=== PATIENT | female | born 1935 | race Caucasian/White ===

== ENCOUNTER 2019-11-14 08:44 | Outpatient (RCR) | payer MEDICARE, SELFPAY ==
--- NOTE | 2019-11-14 13:51 | PTOPEVAL ---
Thank you for referring this patient to [facility]. Please review, sign, date and return this plan of care FANNY. I agree with and certify that the following plan of care is medically necessary. Referring Physician Date Admitting Provider: Attending Provider: Carlos Eduardo Clark MD Referring Provider: *PT Outpatient Evaluation Start: 11/14/19 09:49 Freq: Status: Active Protocol: Document 11/14/19 09:50 [id number] (Rec: 11/14/19 10:22 DELONTE [id number]) Therapy Assessment Status Assessment Status Assessment Status Evaluation Evaluation Information Problem Diagnosis low back and hip pain Onset 10/23/19 Subjective Information Pt. reports she was walking in Query Text:As Reported By Patient/ [facility] and felt back and Family right hip pain. She reports pain has been on/off since then. She states that she did get a steroid pack which hase eased the pain. she reports that her goal for therapy is to continue to decrease her low back pain. Prior Level of Function Activity Level (Last 3 Months) Hand Dominance Right Activity of Daily Living Ability Independent Indoor/Home Mobility Independent Community Mobility Independent Stairs Ability Independent Functional Cognition (Planning, Shopping Independent , Taking Medications) Cooking Yes Cleaning Yes Laundry Yes Shopping Yes Driving Yes Pain Assessment Pain Scale Pain Scale Used Numeric (1 - 10) Self Report Pain Assessment Right Buttock(s) Reported Pain Level 5 Pain Description Aching Current Pain Intensity 5 Lowest Pain Intensity 1 Greatest Pain Intensity 5 Pain Aggravating Factors Prolonged Position,Stair Climbing Pain Relief Interventions Used By Medication,Walking Patient Pain Score Pain Score 5: Self Report Cervical and Lumbar ROM Lumbar ROM Lumbar Flexion Active Ankle Query Text:Hands to: Lumbar Extension (0-40) 20 Query Text:Active in Degrees Lumbar Lateral Flexion Right (0-40) 20 Query Text:Active in Degrees Lumbar Lateral Flexion Left (0-40) 20 Query Text:Active in Degrees Lateral Rotation Right (0-45) 30 Query Text:Active in Degrees Lateral Rotation Left (0-45) 30
== END 2019-12-27 08:42 | disposition home or self-care (01) ==
LOC: CHSPT 08:44
PROVIDERS: Visit Provider Internal Medicine
DX: M54.5 Low back pain (principal); M25.559 Pain in unspecified hip
CPT/HCPCS: 97014; 97110; 97140; 97161; G0283

== ENCOUNTER 2020-05-04 11:56 | Outpatient (CLI) | payer MEDICARE, SELFPAY ==
--- NOTE | ~2020-05-04 | US_ITS ---
EXAMINATION: US pelvic complete w TV DATE: 05/04/2020 12:52 INDICATION: Vaginal bleeding TECHNIQUE: Multiple transabdominal and endovaginal sonographic images of the pelvis were obtained. COMPARISON: None. FINDINGS: The uterus measures 3.9 x 2.1 x 3.1 cm. The endometrial complex measures 5 mm in thickness at the fu ndus which is at the upper limits of normal. The right and left ovaries are not visualized. There is no free fluid in the pelvis. IMPRESSION: 1. Endometrial complex thickness of 5 mm which is at the upper limits of normal. Given the history of vaginal bleeding would consider hysteroscopy for further evaluation. Reviewed, dictated and finalized at location A. IMPRESSION: 1. Endometrial complex thickness of 5 mm which is at the upper limits of normal . Given the history of vaginal bleeding would consider hysteroscopy for further evaluation.
== END 2020-05-04 11:57 | disposition home or self-care (01) ==
PROVIDERS: PCP Internal Medicine; Visit Provider Internal Medicine
DX: N93.8 Other specified abnormal uterine and vaginal bleeding (principal)
CPT/HCPCS: 76830; 76856

== ENCOUNTER 2020-09-03 09:49 | Outpatient (CLI) | payer MEDICARE, SELFPAY ==
--- NOTE | ~2020-09-03 | US_ITS ---
EXAMINATION: US pelvic complete w TV DATE: 09/03/2020 10:20 INDICATION: Postmenopausal bleeding TECHNIQUE: Multiple transabdominal and endovaginal sonographic images of the pelvis were obtained. COMPARISON: 05/04/2020 FINDINGS: The uterus measures 5.4 x 1.9 x 3.2 cm. The endometrial complex measures 5 mm. The left ova ry is not visualized however no left adnexal abnormality is seen. The right ovary measures 1.2 x 0.8 x 1.0 cm. There is normal vascular flow in the right ovary. There is no free fluid in the pelvis. IMPRESSION: 1. No sonographic correlate for the patient's symptoms. Reviewed, dictated and finalized at location A.
== END 2020-09-03 09:50 | disposition home or self-care (01) ==
PROVIDERS: PCP Internal Medicine; Visit Provider Student in an Organized Health Care Education/Training Program
DX: N95.0 Postmenopausal bleeding (principal)
CPT/HCPCS: 76830; 76856

== ENCOUNTER 2021-02-04 12:31 | Outpatient (CLI) | payer MEDICARE, SELFPAY ==
[2021-02-04 13:43] LABS: SARS-CoV-2 Ag Negative (Negative)
[2021-02-05 12:21] LABS: SARS-CoV-2 RNA PCR Negative
== END 2021-02-04 12:32 | disposition home or self-care (01) ==
LOC: CHSLAB 12:35
PROVIDERS: PCP Internal Medicine; Visit Provider Internal Medicine
DX: Z20.822 Contact with and (suspected) exposure to COVID-19 (principal)
CPT/HCPCS: 87426; C9803; U0003; U0005

== ENCOUNTER 2021-03-09 13:31 | Emergency (ER) | payer MEDICARE, SELFPAY ==
[2021-03-09 14:03] VITALS: BP 157/69; PULSE 66; RESP 16; TEMP 37.1; O2SAT 96
--- NOTE | 2021-03-09 15:08 | ED_ITS ---
HPI - Ear Problem General Chief complaint: Ear Stated complaint: hearing aid broke off in R ear Time Seen by Provider: 03/09/21 14:20 Related Data Home Medications Medication Instructions Recorded Confirmed apixaban 5 mg tablet 5 mg PO BID 05/14/20 03/09/21 aspirin 81 mg tablet,delayed 81 mg PO DAILY 05/14/20 03/09/21 release losartan 25 mg tablet 25 mg PO DAILY 05/14/20 03/09/21 metoprolol succinate 25 mg 25 mg PO DAILY 05/14/20 03/09/21 tablet,extended release 24 hr Allergies Allergy/AdvReac Type Severity Reaction Status Date / Time No Known Allergies Allergy Verified 12/26/20 08:43 [facility] Past Medical History Medical History (Updated 03/09/21 @ 15:10 by Andrew Hurd MD) Afib Heart attack High blood pressure High cholesterol Osteoporosis Pneumonia Surgical History Surgical History (Updated 12/26/20 @ 08:47 by Cherelle Del Valle CMA) History of thyroid surgery Family History Family History Father Hypertension Bladder cancer Social History Social History Smoking status: Never smoker Alcohol intake: never Substance use: never Course Vital Signs Vital signs: Vital Signs Temperature 37.1 C 03/09/21 14:03 Pulse Rate 66 03/09/21 14:03 Respiratory Rate 16 03/09/21 14:03 Blood Pressure 157/69 H 03/09/21 14:03 Pulse Oximetry 96 03/09/21 14:03 Temperature 37.1 C 03/09/21 14:03 Pulse Rate 66 03/09/21 14:03 Respiratory Rate 16 03/09/21 14:03 Blood Pressure 157/69 H 03/09/21 14:03 Pulse Oximetry 96 03/09/21 14:03 Medical Decision Making Vital Signs Vital Signs: Vital Signs Temperature 37.1 C 03/09/21 14:03 Pulse Rate 66 03/09/21 14:03 Respiratory Rate 16 03/09/21 14:03 Blood Pressure 157/69 H 03/09/21 14:03 Pulse Oximetry 96 03/09/21 14:03 Temperature 37.1 C 03/09/21 14:03 Pulse Rate 66 03/09/21 14:03 Respiratory Rate 16 03/09/21 14:03 Blood Pressure 157/69 H 03/09/21 14:03 Pulse Oximetry 96 03/09/21 14:03 Discharge Plan Discharge Clinical Impression: Foreign body in ear Patient Disposition: Home, Self-Care Condition: Stable Instructions: Antibiotic Form Additional Instructions: Follow up with family doctor as needed. Prescriptions: No Action Eliquis 5 mg tablet 5 mg PO BID RF: 0 metoprolol succinate 25 mg tablet extended release 24 hr 25 mg PO DAILY RF: 0 aspirin [Aspirin Low Dose] 81 mg tablet,delayed release (DR/EC) 81 mg PO DAILY RF: 0 losartan 25 mg tablet 25 mg PO DAILY RF: 0 Follow-up/Referrals: Carlos Eduardo Clark MD [Primary Care Provider] - Time of Disposition: 15:09
--- NOTE | 2021-03-09 15:16 | PC.NURSE ---
right ear irrigated with warm water, foreign body removed along with small amount of ear was
== END 2021-03-09 15:20 | disposition home or self-care (01) ==
PROVIDERS: Emergency Provider Emergency Medicine; PCP Internal Medicine
DX: T16.1XXA Foreign body in right ear, initial encounter (principal)
CPT/HCPCS: 99282

== ENCOUNTER 2021-06-20 11:20 | Outpatient (CLI) | payer MEDICARE, SELFPAY ==
[2021-06-20 11:41] LABS: Basophils Absolute Auto 0.04 K/mm3 (0.00-0.10); Basophils Percent Auto 0.4 % (0.0-1.0); Eosinophils Absolute Auto 0.21 K/mm3 (0.02-0.50); Eosinophils Percent Auto 1.9 % (1.0-6.0); Hemoglobin 13.7 g/dL (11.7-13.8); Immature Granulocyte Absolute 0.04 K/mm3 (0.00-0.00); Immature Granulocyte Percent A 0.4 % (0.0-0.0); Lymphocytes Absolute Auto 1.45 K/mm3 (1.10-4.50); Lymphocytes Percent Auto 13.3 % (18.0-42.0); Mean Corpuscular HGB Conc 32.6 g/dL (32.0-36.0); Mean Corpuscular Hemoglobin 28.8 pg (27.0-31.0); Mean Corpuscular Volume 88.4 fL (78.0-102.0); Mean Platelet Volume 9.6 fl (9.2-11.8); Monocytes Absolute Auto 0.85 K/mm3 (0.10-0.90); Monocytes Percent Auto 7.8 % (2.0-11.0); Neutrophils Absolute Auto 8.3 K/mm3 (1.7-7.2); Neutrophils Percent Auto 76.2 % (50.0-70.0); Platelet Count Result 268 K/mm3 (150-420); Red Blood Count 4.75 M/mm3 (4.20-5.40); Red Cell Distribution Width 12.3 % (11.6-14.4); White Blood Count 10.9 K/mm3 (4.8-10.8)
[2021-06-20 11:57] LABS: D Dimer 0.94 mg/L (0.19-0.50)
[2021-06-20 12:28] LABS: Alanine Aminotransferase 30 U/L (14-59); Albumin Level 3.6 g/dL (3.4-5.0); Alkaline Phosphatase 75 U/L (46-116); Anion Gap 10 mmol/L (8-16); Aspartate Amino Transferase 17 U/L (15-37); Bilirubin,Total 0.4 mg/dL (0.00-1.00); Blood Urea Nitrogen 12 mg/dL (7-18); CRP 2.6 mg/dL (0.0-0.9); Carbon Dioxide 29 mmol/L (21-32); Chloride 103 mmol/L (98-108); Creatine Kinase 32 U/L (26-192); Estimated Glomerular Filt Rate > 60; Glucose 139 mg/dL (70-99); NT Pro B Type Natriuretic Pept 505 pg/mL (0-450); Osmolality Calculated 295 mOsm/kg (285-295); Sodium 142 mmol/L (136-145); Total Protein 7.1 g/dL (6.4-8.2)
[2021-06-20 12:29] LABS: SARS-CoV-2 RNA PCR Negative (Negative)
[2021-06-20 12:35] LABS: Troponin I < 4.0 ng/L (0.00-60.4)
== END 2021-06-20 11:21 | disposition home or self-care (01) ==
LOC: CHSLAB 11:22
PROVIDERS: PCP Internal Medicine; Visit Provider Internal Medicine
DX: J84.9 Interstitial pulmonary disease, unspecified (principal); R05 Cough; R07.9 Chest pain, unspecified; R06.00 Dyspnea, unspecified; Z20.822 Contact with and (suspected) exposure to COVID-19
CPT/HCPCS: 36415; 80053; 82550; 82553; 83880; 84484; 85025; 85380; 86140; 86769; C9803; U0003; U0005

== ENCOUNTER 2021-06-21 15:40 | Outpatient (CLI) | payer MEDICARE, SELFPAY ==
--- NOTE | ~2021-06-21 | CT_ITS ---
EXAMINATION: CTA chest PE protocol DATE: 06/21/2021 16:52 INDICATION: Shortness of breath. Elevated d-dimer. TECHNIQUE: Computed tomography angiography (CTA) of the chest was performed with 100 mL Omnipaque-350 intravenous contrast timed to evaluate the pulmonary arteries. Coronal maximum intensity projection 3D-reconstructions were created by the technologist. Automated exposure control and iterative reconst ruction technique were employed. Exam dose: 292.01 mGy-cm total exam DLP. COMPARISON: 12/15/2018 CTA chest FINDINGS: There is diagnostic contrast enhancement of the pulmonary arteries and no evidence of pulmo nary embolism. No thoracic aortic aneurysm or dissection. Cardiomegaly. Coronary artery calcifications. No pericardial or pleural effusion. No hilar or mediastinal mass lesion or lymphadenopathy. There is old pulmonary granulomatous disease Usual interstitial pneumonia. No pulmonary consolidation. No pneumothorax. Diffuse osteopenia. No suspicious osteolytic or osteoblastic lesions. IMPRESSION: No evidence of pulmonary embolism Reviewed, dictated and finalized at Location A. Reviewed, dictated and finalized at location A.
== END 2021-06-21 15:41 | disposition home or self-care (01) ==
LOC: CHSIMG 15:43
PROVIDERS: PCP Internal Medicine; Visit Provider Internal Medicine
DX: R06.02 Shortness of breath (principal); R79.1 Abnormal coagulation profile
CPT/HCPCS: 71275; Q9967

== ENCOUNTER 2021-10-21 10:00 | Outpatient (CLI) | payer MEDICARE, SELFPAY ==
[2021-10-21 11:18] LABS: SARS-CoV-2 RNA PCR Positive (Negative)
== END 2021-10-21 10:01 | disposition home or self-care (01) ==
LOC: CHSLAB 10:04
PROVIDERS: PCP Internal Medicine; Visit Provider Internal Medicine
DX: U07.1 COVID-19 (principal)
CPT/HCPCS: C9803; U0003; U0005

== ENCOUNTER 2021-10-23 09:33 | Outpatient (CLI) | payer MEDICARE, SELFPAY ==
--- NOTE | 2021-10-23 09:40 | PC.NURSE ---
Pt to room 211 amb. A&Ox3. Regeneron plan of care discussed, pt signed consent form. Has no complaints. Oriented to room, marty hinojosa in reach. Reminded to call with needs.
[2021-10-23 09:45] VITALS: BP 145/48; PULSE 81; RESP 20; TEMP 36.8; O2SAT 95
[2021-10-23] MEDS: diphenhydrAMINE HCl CAP 25 MG CAPSULE PO (09:55)
[2021-10-23] MEDS: FAMOTIDINE 20 MG TABLET PO (09:55)
[2021-10-23] MEDS: ACETAMINOPHEN 325 MG TABLET 650 MG PO (09:55)
--- NOTE | 2021-10-23 11:35 | PC.NURSE ---
Pt has no questions or complaints. Tolerated infusion well. Discharged to home amb per self.
== END 2021-10-23 09:34 | disposition home or self-care (01) ==
PROVIDERS: PCP Internal Medicine; Visit Provider Internal Medicine
DX: U07.1 COVID-19 (principal)
CPT/HCPCS: A9270; J7050; M0243; Q0244

== ENCOUNTER 2021-11-14 08:37 | Outpatient (CLI) | payer MEDICARE, SELFPAY ==
--- NOTE | ~2021-11-14 | XR_ITS ---
EXAMINATION: XR chest 2V DATE: 11/14/2021 08:54 INDICATION: Cough. Dyspnea on exertion. TECHNIQUE: Frontal and lateral views of the chest were obtained. COMPARISON: Chest single view 12/14/2018, chest CT 06/21/2021 FINDINGS: The lung volumes are normal. There are coarse interstitial opacities throughout the lungs w ith a peripheral and lower lung predominance. No pleural effusion or pneumothorax. Cardiomegaly is no adelso. IMPRESSION: 1. Chronic interstitial lung disease, worsened from 12/14/2018. 2. Cardiomegaly. Reviewed, dictated and finalized at location A. WAGON DRIVER
== END 2021-11-14 08:38 | disposition home or self-care (01) ==
LOC: CHSLAB 08:40
PROVIDERS: PCP Internal Medicine; Visit Provider Internal Medicine
DX: R05.9 Cough, unspecified (principal)
CPT/HCPCS: 71046

== ENCOUNTER 2021-12-16 12:13 | Outpatient (CLI) | payer MEDICARE, SELFPAY ==
--- NOTE | ~2021-12-16 | US_ITS ---
EXAMINATION: US art doppler w press LE BI DATE: 12/16/2021 13:17 INDICATION: Bilateral lower limb pain. TECHNIQUE: Segmental pressures and plethysmographic and Doppler waveforms of the brachial and lower e xtremity arteries were obtained. COMPARISON: None. FINDINGS: Right and left brachial artery pressures of 157 mm Hg and 138 mm Hg, respectively, are concordant (no rmal difference <= 30 mmHg). The right ankle-brachial index (CALEB) is 0.92 (normal >= 0.9-1). The right great toe-brachial index (T BI) is 0.43 (normal >= 0.6-0.8). Arterial waveforms demonstrate brisk systolic upstrokes throughout t he arteries of the right lower limb. The left CALEB is 0.98. The left TBI is 0.38. Arterial waveforms demonstrate brisk systolic upstrokes t hroughout the arteries of the left lower limb. IMPRESSION: 1. Arterial occlusive disease to the bilateral lower limbs with borderline bilateral ABIs but mildly moderately decreased bilateral TBIs. Reviewed, dictated and finalized at location A. ET INSTALLATION SPECIALIST IMPRESSION: 1. Arterial occlusive disease to the bilateral lower limbs with borderline bila teral ABIs but mildly moderately decreased bilateral TBIs.
== END 2021-12-16 12:14 | disposition home or self-care (01) ==
LOC: CHSIMG 12:18
PROVIDERS: PCP Internal Medicine; Visit Provider Internal Medicine
DX: I73.9 Peripheral vascular disease, unspecified (principal); M79.605 Pain in left leg; M79.604 Pain in right leg; M79.89 Other specified soft tissue disorders
CPT/HCPCS: 93923

== ENCOUNTER 2022-04-02 12:31 | Emergency (ER) | payer MEDICARE, SELFPAY ==
--- NOTE | ~2022-04-02 | XR_ITS ---
EXAMINATION: XR chest 1V portable DATE: 04/02/2022 13:18 INDICATION: Palpitations. Left arm and chest pain. TECHNIQUE: A single frontal view of the chest was obtained. COMPARISON: Chest 2 views 11/14/2021, chest CT 06/21/2021 FINDINGS: The lung volumes are normal. There is a diffuse chronic interstitial pattern in the lungs w ith a peripheral predominance. No pleural effusion or pneumothorax. Cardiomegaly is noted. IMPRESSION: 1. Stable chronic interstitial lung disease. 2. Cardiomegaly. Reviewed, dictated and finalized at location B.
[2022-04-02 12:50] VITALS: BP 165/74; PULSE 68; RESP 16; TEMP 36.1; O2SAT 98
--- NOTE | 2022-04-02 12:53 | ECG_ITS ---
Measurements Intervals [place] Rate: 64 P: 22 MO: 185 QRS: -57 QRSD: 132 T: 42 QT: 434 QTc: 449 Interpretive Statements SINUS RHYTHM LEFT BUNDLE BRANCH BLOCK BASELINE ARTIFACT- II, III, AVF ABNORMAL ECG Electronically Signed On 04-02-2022 13:32:34 CDT by Leobardo Schroeder D.O.
--- NOTE | 2022-04-02 12:53 | ED.ARRPALP ---
HPI - Arrhythmia/Palpitations General Chief Complaint: Chest Pain Stated Complaint: HEART DOESN'T FEEL RIGHT L ARM PAIN Time Seen by Provider: 04/02/22 12:53 Source: patient History of Present Illness HPI narrative: 87-year-old female with a history of hypertension, atrial fibrillation, coronary artery disease status post stents in 2001 and 2008 was seen by the retail custodial associate 3 weeks ago and started losartan. Patient presents to the ER with -- palpitation since 6:00 a.m.. No chest pain or shortness of breath MD complaint: rapid heart beat Onset (ago): hour(s) ( started 8 hours ago) Duration: intermittent Severity: mild Context: occurred during rest Arrhythmia history: atrial fibrillation Associated symptoms: denies other symptoms Related Data Home Medications Medication Instructions Recorded Confirmed apixaban 5 mg tablet 5 mg PO BID 05/14/20 04/02/22 aspirin 81 mg tablet,delayed 81 mg PO DAILY 05/14/20 04/02/22 release losartan 25 mg tablet 25 mg PO DAILY 05/14/20 04/02/22 metoprolol succinate 25 mg 25 mg PO DAILY 05/14/20 04/02/22 tablet,extended release 24 hr Allergies Allergy/AdvReac Type Severity Reaction Status Date / Time No Known Allergies Allergy Verified 04/02/22 12:55 Review of Systems Review of Systems: All systems reviewed & are unremarkable except as noted in HPI and below Constitutional: Constitutional: Reports as per HPI and Reports no additional constitutional complaints Eyes: Eyes: Reports as per HPI and Reports no additional eye complaints ENT: Reports system reviewed and no additional complaints, except as documented and Reports as per HPI Comments: very hard of hearing Cardiovascular: Cardiovascular: Reports as per HPI and Reports no additional cardiovascular complaints Comments: has palpitation Respiratory: Respiratory: Reports as per HPI and Reports no additional respiratory complaints Gastrointestinal: Gastrointestinal: Reports as per HPI and Reports no additional gastrointestinal complaints Genitourinary: Genitourinary: Reports no additional female genitourinary complaints Musculoskeletal: Musculoskeletal: Reports no additional musculoskeletal complaints and Reports as per HPI Integumentary/Breasts: Skin/Breast: Reports system reviewed and no additional complaints, except as docu and Reports as per HPI Neurologic: Reports system reviewed and no additional complaints, except as documented and Reports as per HPI Psychiatric: Psychiatric: Reports no additional psychiatric complaints and Reports as per HPI Endocrine: Endocrine: Reports no additional endocrine complaints and Reports as per HPI Hematologic/Lymphatic: Hematologic/Lymphatic: Reports no additional hematologic/lymphatic complaints and Reports as per HPI Allergic/Immunologic: Allergic/Immunologic: Reports no additional allergic/immunologic complaints and Reports as per HPI PMFSH Past Medical History Medical History Afib Heart attack High blood pressure High cholesterol Osteoporosis Pneumonia Surgical History Surgical History History of thyroid surgery Family History Family History Father Hypertension Bladder cancer Social History Social History Smoking status: Never smoker Alcohol intake: never Substance use: never Exam Const: General: no acute distress and alert Orientation/consciousness: patient oriented x3 HENMT: Head: normal to inspection Mouth: Yes lip normal and Yes moist mucous membranes Eyes: Conjunctivae: conjunctivae normal Pupils: Equal, round and reactive pupils present EOM: EOMs intact bilaterally Neck: Neck: normal visual inspection, no lymphadenopathy and no meningeal signs Chest: Chest palpation & inspection: normal inspection of the chest Re
[2022-04-02 13:16] LABS: Basophils Absolute Auto 0.03 K/mm3 (0.00-0.10); Basophils Percent Auto 0.4 % (0.0-1.0); Eosinophils Percent Auto 2.6 % (1.0-6.0); Hematocrit 40.1 % (35.0-42.0); Hemoglobin 13.1 g/dL (11.7-13.8); Immature Granulocyte Absolute 0.03 K/mm3 (0.00-0.00); Immature Granulocyte Percent A 0.4 % (0.0-0.0); Lymphocytes Absolute Auto 1.51 K/mm3 (1.10-4.50); Lymphocytes Percent Auto 19.6 % (18.0-42.0); Mean Corpuscular HGB Conc 32.7 g/dL (32.0-36.0); Mean Corpuscular Hemoglobin 28.8 pg (27.0-31.0); Mean Corpuscular Volume 88.1 fL (78.0-102.0); Mean Platelet Volume 10.2 fl (9.2-11.8); Monocytes Absolute Auto 0.75 K/mm3 (0.10-0.90); Monocytes Percent Auto 9.8 % (2.0-11.0); Neutrophils Absolute Auto 5.2 K/mm3 (1.7-7.2); Neutrophils Percent Auto 67.2 % (50.0-70.0); Platelet Count Result 222 K/mm3 (150-420); Red Blood Count 4.55 M/mm3 (4.20-5.40); Red Cell Distribution Width 12.3 % (11.6-14.4); White Blood Count 7.7 K/mm3 (4.8-10.8)
[2022-04-02 13:36] LABS: Lactic Acid Reflex 0.6 mmol/L (0.4-2.0)
[2022-04-02 13:38] LABS: Alanine Aminotransferase 19 U/L (14-59); Albumin Level 3.4 g/dL (3.4-5.0); Alkaline Phosphatase 60 U/L (46-116); Anion Gap 7 mmol/L (8-16); Aspartate Amino Transferase 20 U/L (15-37); Bilirubin,Total 0.3 mg/dL (0.00-1.00); Blood Urea Nitrogen 8 mg/dL (7-18); Calcium 8.6 mg/dL (8.5-10.1); Carbon Dioxide 27 mmol/L (21-32); Chloride 102 mmol/L (98-108); Estimated Glomerular Filt Rate > 60; Glucose 101 mg/dL (70-99); Magnesium 2.1 mg/dL (1.8-2.4); Osmolality Calculated 280 mOsm/kg (285-295); Potassium 4.1 mmol/L (3.5-5.1); Sodium 136 mmol/L (136-145); Thyroid Stimulating Hormone 3.55 uIU/mL (0.36-3.74); Total Protein 7.2 g/dL (6.4-8.2); Troponin I 6.5 ng/L (0.00-60.4)
[2022-04-02 13:47] LABS: NT Pro B Type Natriuretic Pept 430 pg/mL (0-450)
[2022-04-02 14:59] VITALS: BP 158/68; PULSE 72; RESP 20; TEMP 36.6; O2SAT 96
== END 2022-04-02 15:02 | disposition home or self-care (01) ==
PROVIDERS: Emergency Provider Internal Medicine Critical Care Medicine; PCP Internal Medicine
DX: R00.2 Palpitations (principal); I48.91 Unspecified atrial fibrillation; I10 Essential (primary) hypertension; E78.00 Pure hypercholesterolemia, unspecified; M81.0 Age-related osteoporosis without current pathological fracture
CPT/HCPCS: 36415; 71045; 80053; 83605; 83735; 83880; 84443; 84484; 85025; 93005; 99284

== ENCOUNTER 2023-01-25 14:27 | Emergency (ER) | payer MEDICARE, SELFPAY ==
[2023-01-25] VITALS (19 sets, daily range): BP systolic 132–172; BP diastolic 59–70; PULSE 54–63; RESP 14–19; TEMP 36.4; O2SAT 94–98
--- NOTE | ~2023-01-25 | XR_ITS ---
XR chest 2V DATE: 01/25/2023 14:57 INDICATION: Arrhythmia. Fluttering in the chest today. History of hypertension, atrial fibrillation, myocardial infarction. TECHNIQUE: PA and lateral views COMPARISON: 03/2022 portable AP chest FINDINGS: Diffuse bilateral pulmonary interstitial fibrosis is again noted. Borderline heart size. Aortic calcification and unfolding. No pulmonary consolidation, pleural effusion or pneumothorax is detected. Diffuse osteopenia. IMPRESSION: Chronic interstitial pulmonary fibrosis Borderline heart size Aortic atherosclerosis Osteopenia Reviewed, dictated and finalized at location A. OGRAPHIC ETCHER
--- NOTE | 2023-01-25 14:30 | ED.ARRPALP ---
HPI - Arrhythmia/Palpitations General Chief Complaint: Arrhythmia/Palpitations Stated Complaint: fluttering feeling in chest Time Seen by Provider: 01/25/23 14:30 Source: patient and RN notes reviewed Mode of arrival: ambulatory Limitations: no limitations History of Present Illness HPI narrative: Patient states she has felt some fluttering in her chest for the last 3 days intermittently. she has a history of 1 episode atrial fibrillation in the past. She denies any nausea vomiting. She denies any shortness of breath with this. complaint: skipped beats Onset (ago): day(s) (3) Duration: intermittent Severity: moderate Context: occurred during rest Arrhythmia history: atrial fibrillation Associated symptoms: denies other symptoms Related Data Home Medications Medication Instructions Recorded Confirmed apixaban 5 mg tablet (Eliquis) 5 mg PO BID 05/14/20 04/02/22 aspirin 81 mg tablet,delayed 81 mg PO DAILY 05/14/20 04/02/22 release (Marsha Low Dose Aspirin) losartan 25 mg tablet 25 mg PO DAILY 05/14/20 04/02/22 metoprolol succinate 25 mg 25 mg PO DAILY 05/14/20 04/02/22 tablet,extended release 24 hr prednisone 5 mg tablet 5 mg PO DAILY 01/25/23 01/25/23 Allergies Allergy/AdvReac Type Severity Reaction Status Date / Time No Known Allergies Allergy Verified 01/25/23 14:55 Review of Systems Review of Systems: All systems reviewed & are unremarkable except as noted in HPI and below ENT: Denies dizziness Cardiovascular: Cardiovascular: Denies chest pain Respiratory: Respiratory: Denies cough and Denies dyspnea PMFSH Past Medical History Medical History Afib Heart attack High blood pressure High cholesterol Osteoporosis Pneumonia Surgical History Surgical History History of thyroid surgery Family History Family History Father Hypertension Bladder cancer Social History Social History Smoking status: Never smoker Alcohol intake: never Substance use: never Exam Const: General: healthy appearing, no acute distress and alert Nutritional Appearance: well nourished Orientation/consciousness: patient oriented x3 Limitations: no limitations HENMT: Head: normal to inspection Ears: external ears normal Face and sinus: normal facial exam Eyes: Conjunctivae: conjunctivae normal Pupils: Equal, round and reactive pupils present EOM: EOMs intact bilaterally Neck: Neck: normal visual inspection Resp: Effort & Inspection: normal respiratory effort Auscultation: clear to auscultation bilaterally Cardio: Rate: regular rate Rhythm: regular rhythm and regular rhythm GI: GI Palp: Yes Soft to palpation and No Tenderness to palpation present (GI) Auscultation: normal bowel sounds Back/Spine/Pelvis: Cervical Spine: cervical ROM normal Thoracic/Lumbar Spine: thoraco-lumbar ROM normal Skin: General skin exam: normal color Rashes: no rashes Neuro: General: patient oriented x3, moves all extremities, no focal motor deficits and CN's II-XI intact bilaterally Speech: normal speech Gait exam (Neuro): Normal gait present Extrem: General: normal to inspection and no clubbing, cyanosis or edema Psych: Mental Status: mental status grossly normal Affect: normal affect Attitude: cooperative Course Course Emergency Course: Had independent consultant Dr. Schroeder reviewed the EKG he read it as unchanged from March of 2022 as a left bundle-branch block. Vital Signs Vital signs: Vital Signs Temperature 36.4 C L 01/25/23 14:27 Pulse Rate 62 01/25/23 14:27 Respiratory Rate 18 01/25/23 14:27 Blood Pressure 160/61 H 01/25/23 14:27 Pulse Oximetry 98 01/25/23 14:27 Oxygen Delivery Room Air 01/25/23 14:27 Temperature 36.4 C L 01/25/23 14:27 Pulse Rate 55 L 01/25/23
--- NOTE | 2023-01-25 14:35 | ECG_ITS ---
Measurements Intervals [place] Rate: 61 P: 17 GA: 188 QRS: -50 QRSD: 138 T: 114 QT: 389 QTc: 392 Interpretive Statements SINUS RHYTHM BASELINE ARTIFACT LEFT BUNDLE-BRANCH BLOCK COMPARED TO ECG 04/02/2022 13:08:15 NO SIGNIFICANT CHANGE Electronically Signed On 01-26-2023 13:49:29 DISPENSING AUDIOLOGIST by Xavier Plummer M.D.
--- NOTE | 2023-01-25 15:03 | PC.NURSE ---
finishing tunnel operator placed on pt after arrival to the exam room.
[2023-01-25 15:08] LABS: Basophils Absolute Auto 0.05 K/mm3 (0.00-0.10); Basophils Percent Auto 0.4 % (0.0-1.0); Eosinophils Absolute Auto 0.21 K/mm3 (0.02-0.50); Eosinophils Percent Auto 1.9 % (1.0-6.0); Hematocrit 40.7 % (35.0-42.0); Hemoglobin 13.3 g/dL (11.7-13.8); Immature Granulocyte Absolute 0.07 K/mm3 (0.00-0.00); Immature Granulocyte Percent A 0.6 % (0.0-0.0); Lymphocytes Absolute Auto 2.68 K/mm3 (1.10-4.50); Lymphocytes Percent Auto 23.6 % (18.0-42.0); Mean Corpuscular HGB Conc 32.7 g/dL (32.0-36.0); Mean Corpuscular Hemoglobin 28.9 pg (27.0-31.0); Mean Corpuscular Volume 88.5 fL (78.0-102.0); Mean Platelet Volume 10.4 fl (9.2-11.8); Monocytes Absolute Auto 1.16 K/mm3 (0.10-0.90); Monocytes Percent Auto 10.2 % (2.0-11.0); Neutrophils Absolute Auto 7.2 K/mm3 (1.7-7.2); Neutrophils Percent Auto 63.3 % (50.0-70.0); Platelet Count Result 233 K/mm3 (150-420); Red Cell Distribution Width 12.4 % (11.6-14.4); White Blood Count 11.3 K/mm3 (4.8-10.8)
[2023-01-25 15:19] LABS: Partial Thromboplastin Time 27.8 SEC (23.90-30.70); Prothrombin Time 10.9 Seconds (9.50-12.10)
[2023-01-25 15:27] LABS: Alanine Aminotransferase 19 U/L (14-59); Albumin Level 3.3 g/dL (3.4-5.0); Alkaline Phosphatase 62 U/L (46-116); Anion Gap 8 mmol/L (8-16); Aspartate Amino Transferase 18 U/L (15-37); Bilirubin,Total 0.3 mg/dL (0.00-1.00); Blood Urea Nitrogen 19 mg/dL (7-18); Calcium 8.8 mg/dL (8.5-10.1); Carbon Dioxide 28 mmol/L (21-32); Chloride 105 mmol/L (98-108); Estimated Glomerular Filt Rate > 60; Glucose 107 mg/dL (70-99); NT Pro B Type Natriuretic Pept 448 pg/mL (0-450); Osmolality Calculated 294 mOsm/kg (285-295); Potassium 3.8 mmol/L (3.5-5.1); Sodium 141 mmol/L (136-145); Troponin I 9.8 ng/L (0.00-60.4)
--- NOTE | 2023-01-25 16:09 | PC.NURSE ---
Called Dr. Schroeder to read pt's EKG, he will call back with reading.
--- NOTE | 2023-01-25 16:11 | PC.NURSE ---
Dr. Schroeder called back, stated EKG unchanged from EKG reading on April 02, 2022, Left bundle branch block. ERP made aware.
== END 2023-01-25 16:32 | disposition home or self-care (01) ==
PROVIDERS: Emergency Provider Emergency Medicine; PCP Internal Medicine
DX: R00.2 Palpitations (principal); I48.91 Unspecified atrial fibrillation; I10 Essential (primary) hypertension; E78.00 Pure hypercholesterolemia, unspecified; I25.2 Old myocardial infarction; M81.0 Age-related osteoporosis without current pathological fracture; Z79.01 Long term (current) use of anticoagulants; Z79.82 Long term (current) use of aspirin
CPT/HCPCS: 36415; 71046; 80053; 83880; 84484; 85025; 85610; 85730; 93005; 99284

== ENCOUNTER 2024-04-30 00:01 | Emergency (ER) | payer MEDICARE, SELFPAY ==
[2024-04-30] VITALS (36 sets, daily range): BP systolic 105–163; BP diastolic 50–90; PULSE 67–115; RESP 13–31; TEMP 36.4–36.6; O2SAT 88–98
--- NOTE | ~2024-04-30 | XR_ITS ---
XR chest 1V portable DATE: 04/30/2024 00:13 INDICATION: Palpitations. History of atrial fibrillation. 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 Heart size is not optimally evaluated on AP projection but is likely within normal range. There is ao rtic calcification and unfolding. No hilar or mediastinal enlargement is evident. No pleural effusion is noted. No pneumothorax. Diffuse osteopenia. IMPRESSION: Chronic interstitial fibrotic changes Reviewed, dictated and finalized at location A.
--- NOTE | 2024-04-30 00:03 | ECG_ITS ---
Test Date: 2024-05-25 00:04:22 Measurements Intervals [place] Rate: 154 P: 0 PA: 0 QRS: -52 QRSD: 130 T: 124 QT: 298 QTc: 478 Interpretive Statements ATRIAL FIBRILLATION WITH RAPID VENTRICULAR RESPONSE LEFT AXIS DEVIATION [QRS AXIS < -30] LEFT BUNDLE BRANCH BLOCK [120+ ms QRS DURATION, 80+ ms Q/S IN V1/V2, 85+ ms R IN I/aVL/V5/V6] Compared to ECG 05/15/2024 04:20:56 Sinus tachycardia no longer present Electronically Signed On 05-25-2024 11:42:45 CDT by Andrei Morris M.D.
--- NOTE | 2024-04-30 00:06 | ED.ARRPALP ---
HPI - Arrhythmia/Palpitations General Chief Complaint: Arrhythmia/Palpitations Stated Complaint: Irregular Heart Beat Time Seen by Provider: 04/30/24 00:03 Source: patient Mode of arrival: ambulatory Limitations: no limitations History of Present Illness HPI narrative: patient is an 89-year-old female with palpitations and irregular heartbeat noted throughout the day. She has AFib in she is on Eliquis and Metoprolol. She has coronary artery disease with 2 stents. MD complaint: heart racing , palpitations and irregular heart beat Onset (ago): day(s) (1) Duration: intermittent Severity: moderate Context: occurred during rest and other ( Patient has 2 stents with CAD) Arrhythmia history: atrial fibrillation and on anti-coagulants Associated symptoms: denies other symptoms Treatments prior to arrival: beta-cortney ( daily) Related Data Home Medications Medication Instructions Recorded Confirmed apixaban 5 mg tablet (Eliquis) 5 mg PO BID 05/14/20 04/30/24 aspirin 81 mg tablet,delayed 81 mg PO DAILY 05/14/20 04/30/24 release (Marsha Low Dose Aspirin) losartan 25 mg tablet 25 mg PO DAILY 05/14/20 04/30/24 metoprolol succinate 25 mg 25 mg PO DAILY 05/14/20 04/30/24 tablet,extended release 24 hr prednisone 5 mg tablet 7.5 mg PO DAILY 01/25/23 04/30/24 Allergies Allergy/AdvReac Type Severity Reaction Status Date / Time No Known Allergies Allergy Verified 03/22/24 10:24 Review of Systems Review of Systems: All systems reviewed & are unremarkable except as noted in HPI and below Constitutional: Constitutional: Reports no additional constitutional complaints Eyes: Eyes: Reports no additional eye complaints ENT: Reports system reviewed and no additional complaints, except as documented Cardiovascular: Cardiovascular: Reports no additional cardiovascular complaints Respiratory: Respiratory: Reports no additional respiratory complaints Gastrointestinal: Gastrointestinal: Reports no additional gastrointestinal complaints Genitourinary: Genitourinary: Reports no additional female genitourinary complaints Musculoskeletal: Musculoskeletal: Reports no additional musculoskeletal complaints Integumentary/Breasts: Skin/Breast: Reports system reviewed and no additional complaints, except as docu Neurologic: Reports system reviewed and no additional complaints, except as documented Psychiatric: Psychiatric: Reports no additional psychiatric complaints Endocrine: Endocrine: Reports no additional endocrine complaints Hematologic/Lymphatic: Hematologic/Lymphatic: Reports no additional hematologic/lymphatic complaints Allergic/Immunologic: Allergic/Immunologic: Reports no additional allergic/immunologic complaints PMFSH Past Medical History Medical History Afib Heart attack High blood pressure High cholesterol Osteoporosis Pneumonia Surgical History Surgical History History of thyroid surgery Family History Family History Father Hypertension Bladder cancer Social History Social History Smoking status: Never smoker Alcohol intake: never Substance use: never Exam Const: General: healthy appearing Nutritional Appearance: well nourished Orientation/consciousness: patient oriented x3 HENMT: Head: normal to inspection Ears: external ears normal Face/Nose/Sinus: Normal external nose present Eyes: Conjunctivae: conjunctivae normal Pupils: Equal, round and reactive pupils present EOM: EOMs intact bilaterally Neck: Neck: normal visual inspection Chest: Chest palpation & inspection: normal inspection of the chest Resp: Effort & Inspection: normal respiratory effort and not labored Auscultation: clear to auscultation bilaterally Cardio: Rate: abnormal rate and tachycardic Rh
--- NOTE | 2024-04-30 00:16 | ECG_ITS ---
Test Date: 2024-04-30 00:16:36 Measurements Intervals [place] Rate: 106 P: 26 [place]: 198 QRS: -57 QRSD: 124 T: 104 QT: 340 Avg RR 561 QTc: 402 QTcB 453 QTcF 412 Interpretive Statements SINUS TACHYCARDIA LEFT BUNDLE BRANCH BLOCK Compared to ECG 01/25/2023 14:31:33 HEART RATE INCREASED Electronically Signed On 05-30-2024 12:10:14 CDT by Leobardo Schroeder MD. Dictated By: Alexandre Booth MD 05/30/2024 1210 Signed By: <Electronically signed by Leobardo Schroeder MD in OV> MTDD
[2024-04-30 00:23] LABS: Basophils Absolute Auto 0.06 K/mm3 (0.00-0.10); Basophils Percent Auto 0.4 % (0.0-1.0); Eosinophils Absolute Auto 0.17 K/mm3 (0.02-0.50); Eosinophils Percent Auto 1.1 % (1.0-6.0); Hematocrit 42.4 % (35.0-42.0); Hemoglobin 13.9 g/dL (11.7-13.8); Immature Granulocyte Absolute 0.07 K/mm3 (0.00-0.00); Immature Granulocyte Percent A 0.4 % (0.0-0.0); Lymphocytes Absolute Auto 2.69 K/mm3 (1.10-4.50); Mean Corpuscular HGB Conc 32.8 g/dL (32-36); Mean Corpuscular Hemoglobin 28.9 pg (27.0-31.0); Mean Corpuscular Volume 88.1 fL (78.0-102.0); Mean Platelet Volume 9.8 fl (9.2-11.8); Monocytes Absolute Auto 1.54 K/mm3 (0.10-0.90); Monocytes Percent Auto 9.7 % (2.0-11.0); Neutrophils Absolute Auto 11.32 K/mm3 (1.70-7.20); Neutrophils Percent Auto 71.4 % (50.0-70.0); Platelet Count Result 237 K/mm3 (150-420); Red Blood Count 4.81 M/mm3 (4.20-5.40); Red Cell Distribution Width 12.7 % (11.6-14.4); White Blood Count 15.9 K/mm3 (4.8-10.8)
--- NOTE | 2024-04-30 00:28 | PC.NURSE ---
daughter at the bedside
[2024-04-30 00:37] LABS: Prothrombin Time 11.2 Seconds (9.50-12.1)
[2024-04-30 00:46] LABS: Alanine Aminotransferase 18 U/L (14-59); Albumin Level 3.2 g/dL (3.4-5.0); Alkaline Phosphatase 44 U/L (46-116); Anion Gap 8 mmol/L (4-12); Aspartate Amino Transferase 19 U/L (15-37); Bilirubin,Total 0.4 mg/dL (0.00-1.00); Blood Urea Nitrogen 13 mg/dL (7-18); Calcium 8.6 mg/dL (8.5-10.1); Carbon Dioxide 29 mmol/L (21-32); Chloride 106 mmol/L (98-108); Estimated Glomerular Filt Rate > 60; Glucose 121 mg/dL (70-99); NT Pro B Type Natriuretic Pept 1850 pg/mL (0-450); Osmolality Calculated 297 mOsm/kg (285-295); Potassium 3.9 mmol/L (3.5-5.1); Sodium 143 mmol/L (136-145); Total Protein 6.7 g/dL (6.4-8.2); Troponin I 57.2 ng/L (0.00-60.4)
--- NOTE | 2024-04-30 01:02 | PC.NURSE ---
urine taken to lab
[2024-04-30 01:03] LABS: Magnesium 2.1 mg/dL (1.8-2.4)
[2024-04-30 01:06] LABS: Appearance Urine Clear (Clear); Bilirubin Urine Negative (Negative); Blood Urine Trace-intact (Negative); Color Urine Light Yellow (Yellow); Glucose Urine UA Negative (Negative); Ketones Urine Negative (Negative); Leukocyte Esterase Ur 3+ LEU/UL (Negative); Nitrate Urine Negative (Negative); Protein Urine Negative (Negative); Specific Grav Ur 1.015 (1.010-1.020); Urobilinogen Urine 0.2 mg/dL (0.2-1.0)
[2024-04-30 01:15] LABS: Add Urine Microscopic? YES; Bacteria Urine 1+ /hpf; RBC Urine 0-2 /hpf (0-2); Squamous Epithelial Cell Urine Rare /hpf (Few)
--- NOTE | 2024-04-30 02:03 | PC.NURSE ---
lab at the bedside for second trop
[2024-04-30 02:27] LABS: Troponin I 69.6 ng/L (0.00-60.4)
[2024-04-30] MEDS: ASPIRIN 81 MG CHEWABLE TABLET PO (03:21)
--- NOTE | 2024-04-30 03:30 | PC.NURSE ---
patient repositioned for comfort. warm blanket given. er provider at the bedside
--- NOTE | 2024-04-30 06:00 | PC.NURSE ---
lab at the bedside
[2024-04-30 06:14] LABS: Troponin I 70.5 ng/L (0.00-60.4)
--- NOTE | 2024-05-02 13:27 | PC.NURSE ---
Final urine culture report: No growth, No further action or treatment needed at this time.
== END 2024-04-30 07:00 | disposition home or self-care (01) ==
PROVIDERS: Emergency Provider Emergency Medicine; PCP Internal Medicine
DX: R00.2 Palpitations (principal); N39.0 Urinary tract infection, site not specified; I48.91 Unspecified atrial fibrillation; I25.10 Atherosclerotic heart disease of native coronary artery without angina pectoris; I25.2 Old myocardial infarction; I10 Essential (primary) hypertension; E78.00 Pure hypercholesterolemia, unspecified; M81.0 Age-related osteoporosis without current pathological fracture; Z95.5 Presence of coronary angioplasty implant and graft; Z79.82 Long term (current) use of aspirin; Z79.01 Long term (current) use of anticoagulants
CPT/HCPCS: 36415; 71045; 80053; 81001; 83735; 83880; 84484; 85025; 85610; 85730; 87086; 93005; 96365; 99284; A9270; J0696

== ENCOUNTER 2024-05-15 04:06 | Emergency (ER) | payer MEDICARE, SELFPAY ==
[2024-05-15] VITALS (25 sets, daily range): BP systolic 98–132; BP diastolic 48–91; PULSE 63–155; RESP 12–23; TEMP 36.4–36.6; O2SAT 92–96
--- NOTE | ~2024-05-15 | XR_ITS ---
EXAMINATION: XR chest 1V portable DATE: 05/15/2024 04:37 INDICATION: Palpitations TECHNIQUE: frontal view of the chest was obtained. COMPARISON: Chest radiograph dated 04/30/2024 FINDINGS: Again seen are coarse peripheral and lower lung predominant reticular opacities consistent with chron ic interstitial fibrosis. No pleural effusion or pneumothorax. Cardiomegaly. IMPRESSION: 1. Stable appearance of chronic interstitial lung disease. 2. Cardiomegaly. Reviewed, dictated and finalized at location A.
--- NOTE | 2024-05-15 04:12 | ECG_ITS ---
Test Date: 2024-05-15 04:20:56 Measurements Intervals [place] Rate: 116 P: 7 [place]: 192 QRS: -55 QRSD: 134 T: 103 QT: 334 QTc: 466 Interpretive Statements SINUS TACHYCARDIA WITH FREQUENT SUPRAVENTRICULAR PREMATURE COMPLEXES LEFT AXIS DEVIATION [QRS AXIS < -30] LEFT BUNDLE BRANCH BLOCK [120+ ms QRS DURATION, 80+ ms Q/S IN V1/V2, 85+ ms R IN I/aVL/V5/V6] ABNORMAL ECG INTERPRETATION BASED ON A DEFAULT AGE OF 40 YEARS No previous ECG available for comparison Electronically Signed On 05-16-2024 11:27:52 CDT by Lucas Medeiros M.D.
[2024-05-15] MEDS: dilTIAZem HCl INJ 25 MG/5 ML VIAL 10 MG IV PUSH (04:37)
[2024-05-15 04:48] LABS: Basophils Absolute Auto 0.07 K/mm3 (0.00-0.10); Basophils Percent Auto 0.6 % (0.0-1.0); Eosinophils Percent Auto 1.6 % (1.0-6.0); Hematocrit 40.2 % (35.0-42.0); Hemoglobin 13.2 g/dL (11.7-13.8); Immature Granulocyte Absolute 0.06 K/mm3 (0.00-0.00); Immature Granulocyte Percent A 0.5 % (0.0-0.0); Lymphocytes Percent Auto 26.1 % (18.0-42.0); Mean Corpuscular HGB Conc 32.8 g/dL (32-36); Mean Corpuscular Hemoglobin 29.1 pg (27.0-31.0); Mean Corpuscular Volume 88.7 fL (78.0-102.0); Mean Platelet Volume 10.2 fl (9.2-11.8); Monocytes Absolute Auto 1.31 K/mm3 (0.10-0.90); Monocytes Percent Auto 10.7 % (2.0-11.0); Neutrophils Absolute Auto 7.43 K/mm3 (1.70-7.20); Neutrophils Percent Auto 60.5 % (50.0-70.0); Platelet Count Result 226 K/mm3 (150-420); Red Blood Count 4.53 M/mm3 (4.20-5.40); Red Cell Distribution Width 12.8 % (11.6-14.4); White Blood Count 12.3 K/mm3 (4.8-10.8)
--- NOTE | 2024-05-15 04:55 | PC.NURSE ---
Pt resting after given Cardizem 10 mg IVP. She reports feeling better and is resting easier. She states she isn't feeling the heart palpitations now. VSS.
--- NOTE | 2024-05-15 04:55 | ED.ARRPALP ---
HPI - Arrhythmia/Palpitations General Chief Complaint: Arrhythmia/Palpitations Stated Complaint: irregular heart beat Time Seen by Provider: 05/15/24 04:16 Source: patient and family Mode of arrival: ambulatory Limitations: no limitations History of Present Illness HPI narrative: this is a 89-year-old female with a history of atrial fibrillation coronary artery disease with hypertension was woken up this evening at around 11:00 p.m. with palpitations and rapid heart rate. Patient feels lightheaded but there is no chest pain no shortness of breath no nausea vomiting no abdominal pain no flank pain no dysuria. complaint: rapid heart beat, heart racing and palpitations Onset (ago): hour(s) Duration: constant Severity: moderate Context: occurred during rest Arrhythmia history: atrial fibrillation Associated symptoms: denies other symptoms Related Data Home Medications Medication Instructions Recorded Confirmed apixaban 5 mg tablet (Eliquis) 5 mg PO BID 05/14/20 05/15/24 aspirin 81 mg tablet,delayed 81 mg PO DAILY 05/14/20 05/15/24 release (Marsha Low Dose Aspirin) losartan 25 mg tablet 25 mg PO DAILY 05/14/20 05/15/24 metoprolol succinate 25 mg 25 mg PO DAILY 05/14/20 05/15/24 tablet,extended release 24 hr prednisone 5 mg tablet 10 mg PO DAILY 01/25/23 05/15/24 amoxicillin 250 mg capsule 250 mg PO TID 05/15/24 05/15/24 cholecalciferol (vitamin D3) 125 125 mcg PO DAILY 05/15/24 05/15/24 mcg (5,000 unit) tablet (Vitamin D3) Allergies Allergy/AdvReac Type Severity Reaction Status Date / Time No Known Allergies Allergy Verified 03/22/24 10:24 Review of Systems Review of Systems: All systems reviewed & are unremarkable except as noted in HPI and below PMFSH Past Medical History Medical History Afib Heart attack High blood pressure High cholesterol Osteoporosis Pneumonia Surgical History Surgical History History of thyroid surgery Family History Family History Father Hypertension Bladder cancer Social History Social History Smoking status: Never smoker Alcohol intake: never Substance use: never Exam Const: General: healthy appearing, no acute distress and alert Nutritional Appearance: well nourished Orientation/consciousness: patient oriented x3 Limitations: no limitations HENMT: Head: normal to inspection Eyes: Conjunctivae: conjunctivae normal Neck: Neck: normal visual inspection, no lymphadenopathy and no meningeal signs Chest: Chest palpation & inspection: normal inspection of the chest Resp: Effort & Inspection: normal respiratory effort Auscultation: clear to auscultation bilaterally Cardio: Rate: tachycardic Rhythm: abnormal rhythm GI: GI Palp: Yes Soft to palpation Auscultation: normal bowel sounds Skin: General skin exam: normal color Rashes: no rashes Neuro: General: patient oriented x3, moves all extremities and no meningeal signs Extrem: General: normal to inspection, no clubbing, cyanosis or edema and no pedal edema Course Course Emergency Course: Patient with rapid heart rate in the 120s was given 10mg IV bolus of Cardizem and patient heart rate has improved currently down to around 70s with a blood pressure 117 systolic, chest x-ray shows interstitial fibrosis which is chronic. Patient received a dose of aspirin 324mg, started on a heparin drip. Because of there was elevated troponin with no ST elevation on the EKG consistent with non STEMI. Labs there was elevated TSH 7.33, with BNP 1667 chest x-ray performed shows chronic interstitial fibrosis. Spoke to hospitalist at [facility] that accepted the patient for transfer. Patient continues to be chest pain free and current vitals heart rate of 74 blood pressure
[2024-05-15 05:02] LABS: D Dimer 0.41 mg/L (0.19-0.50); INR 1.1; Partial Thromboplastin Time 27.7 Sec (23.9-30.70); Prothrombin Time 11.5 Seconds (9.50-12.1)
[2024-05-15 05:09] LABS: Lactic Acid Reflex 1.3 mmol/L (0.4-2.0)
[2024-05-15 05:11] LABS: Alanine Aminotransferase 17 U/L (14-59); Albumin Level 2.9 g/dL (3.4-5.0); Alkaline Phosphatase 37 U/L (46-116); Anion Gap 10 mmol/L (4-12); Aspartate Amino Transferase 17 U/L (15-37); Bilirubin,Total 0.4 mg/dL (0.00-1.00); Blood Urea Nitrogen 12 mg/dL (7-18); Calcium 8.2 mg/dL (8.5-10.1); Carbon Dioxide 26 mmol/L (21-32); Chloride 107 mmol/L (98-108); Estimated Glomerular Filt Rate > 60; Glucose 103 mg/dL (70-99); Magnesium 1.9 mg/dL (1.8-2.4); NT Pro B Type Natriuretic Pept 1667 pg/mL (0-450); Osmolality Calculated 295 mOsm/kg (285-295); Potassium 3.6 mmol/L (3.5-5.1); Sodium 143 mmol/L (136-145); Thyroid Stimulating Hormone 7.33 uIU/mL (0.36-3.74); Total Protein 6.2 g/dL (6.4-8.2)
[2024-05-15 05:12] LABS: CRP < 0.5 mg/dL (0.0-0.9)
--- NOTE | 2024-05-15 05:15 | PC.NURSE ---
Spoke c pt and family about test results and POC to transfer to her local sales manager Dr Meyer at [facility].
[2024-05-15 05:26] LABS: SARS-CoV-2 RNA PCR Negative (Negative)
[2024-05-15 05:28] LABS: Influenza A QL RT-PCR Negative (Negative); Influenza B QL RT-PCR Negative (Negative); RSV RNA, RT-PCR Negative (Negative)
[2024-05-15] MEDS: ASPIRIN 81 MG CHEWABLE TABLET 324 MG PO (05:32)
[2024-05-15] MEDS: SODIUM CHLORIDE 0.9% IV 500 ML 50 ML IV CONT (05:35)
--- NOTE | 2024-05-15 05:40 | PC.NURSE ---
Pt has been accepted by Dr Chen at [facility]. Orders received to start Heparin, paperwork for transfer signed. VSS at this time Monitor showing Afib w/ HR of 72.
[2024-05-15] MEDS: HEPARIN SODIUM 5,000 UNITS/ML VIAL 5000 UNITS IV PUSH (05:54)
[2024-05-15] MEDS: HEPARIN SOD/D5W 100 UNITS/ML 25,000 UNITS/250 ML BAG 7 UNITS IV CONT (05:54)
--- NOTE | 2024-05-15 06:20 | PC.NURSE ---
Call back from [facility] and report given to WOODY Russ Pt to go to Bed 534 CVCU.
--- NOTE | 2024-05-15 06:28 | PC.NURSE ---
[facility] unable to take transfer due to no rigs in service and out on other calls. [facility] paged for transfer. Pt resting, reports feeling better, IVF and Heparin gtt infusing as per order. Monitor showing NSR at this time w/ HR 65.
== END 2024-05-15 06:56 | disposition short-term general hospital (02) ==
PROVIDERS: Emergency Provider Emergency Medicine; PCP Internal Medicine
DX: I48.20 Chronic atrial fibrillation, unspecified (principal); I21.4 Non-ST elevation (NSTEMI) myocardial infarction; I25.10 Atherosclerotic heart disease of native coronary artery without angina pectoris; I48.91 Unspecified atrial fibrillation; I10 Essential (primary) hypertension; I25.2 Old myocardial infarction; Z79.01 Long term (current) use of anticoagulants; Z79.82 Long term (current) use of aspirin; Z79.899 Other long term (current) drug therapy; Z20.822 Contact with and (suspected) exposure to COVID-19
CPT/HCPCS: 36415; 71045; 80053; 83605; 83735; 83880; 84443; 84484; 85025; 85380; 85610; 85730; 86140; 87637; 93005; 96365; 96375; 99285; A9270; J1644; J7040

== ENCOUNTER 2024-05-23 12:29 | Outpatient (CLI) | payer MEDICARE, SELFPAY ==
[2024-05-23 12:47] LABS: Appearance Urine Clear (Clear); Bilirubin Urine Negative (Negative); Blood Urine Negative (Negative); Color Urine Light Yellow (Yellow); Glucose Urine UA Negative (Negative); Ketones Urine Negative (Negative); Leukocyte Esterase Ur 2+ (Negative); Nitrate Urine Negative (Negative); Protein Urine Negative (Negative); Specific Grav Ur <= 1.005 (1.010-1.020)
[2024-05-23 12:53] LABS: Add Urine Microscopic? YES; RBC Urine None seen /hpf (0-2); WBC Clumps Urine Present /hpf; WBC Urine 21-30 /hpf (0-3)
[2024-05-23 12:54] LABS: Bacteria Urine None seen /hpf; Mucus Urine Few /lpf
== END 2024-05-23 12:30 | disposition home or self-care (01) ==
LOC: CHSLAB 12:31
PROVIDERS: PCP Internal Medicine; Visit Provider Internal Medicine
DX: N39.0 Urinary tract infection, site not specified (principal)
CPT/HCPCS: 81001; 87086

== ENCOUNTER 2024-05-24 23:55 | Emergency (ER) | payer MEDICARE, SELFPAY ==
--- NOTE | ~2024-05-24 | XR_ITS ---
Portable chest x-ray Comparison: 05/15/2024 Clinical History: Irregular heart rate Findings: There is peripheral chronic interstitial disease in the lungs. No acute pulmonary patholog y evident. Cardiomediastinal silhouette is stable. Bones and soft tissues are unremarkable. Impression: Extensive chronic interstitial disease, unchanged. Reviewed, dictated and finalized at location . Impression: Extensive chronic interstitial disease, unchanged.
[2024-05-25] VITALS (7 sets, daily range): BP systolic 114–140; BP diastolic 67–88; PULSE 76–153; RESP 14–20; TEMP 36.3; O2SAT 91–100
--- NOTE | 2024-05-25 | ED.ARRPALP ---
HPI - Arrhythmia/Palpitations General Chief Complaint: Arrhythmia/Palpitations Stated Complaint: heart palptations Time Seen by Provider: 05/24/24 23:58 Source: patient Mode of arrival: ambulatory Limitations: no limitations History of Present Illness HPI narrative: 89 year old female presents to the Emergency Department complaining of irregular heart beat and palpitations. Onset 2 hours ago. Denies chest pain or shortness of breath. History of same. MD complaint: palpitations and irregular heart beat Onset (ago): hour(s) (2) Duration: constant Severity: moderate Related Data Home Medications Medication Instructions Recorded Confirmed apixaban 5 mg tablet (Eliquis) 5 mg PO BID 05/14/20 05/25/24 aspirin 81 mg tablet,delayed 81 mg PO DAILY 05/14/20 05/25/24 release (Marsha Low Dose Aspirin) losartan 25 mg tablet 25 mg PO DAILY 05/14/20 05/25/24 metoprolol succinate 25 mg 25 mg PO DAILY 05/14/20 05/25/24 tablet,extended release 24 hr prednisone 5 mg tablet 10 mg PO DAILY 01/25/23 05/25/24 amoxicillin 250 mg capsule 250 mg PO TID 05/15/24 05/25/24 cholecalciferol (vitamin D3) 125 125 mcg PO DAILY 05/15/24 05/25/24 mcg (5,000 unit) tablet (Vitamin D3) Allergies Allergy/AdvReac Type Severity Reaction Status Date / Time No Known Allergies Allergy Verified 03/22/24 10:24 Review of Systems Review of Systems: All systems reviewed & are unremarkable except as noted in HPI and below Constitutional: Constitutional: Reports as per HPI, Reports no additional constitutional complaints, Denies chills and Denies fever(s) Eyes: Eyes: Reports as per HPI ENT: Reports system reviewed and no additional complaints, except as documented Cardiovascular: Cardiovascular: Reports as per HPI, Reports no additional cardiovascular complaints, Denies chest pain and Reports rapid heart rate Respiratory: Respiratory: Reports as per HPI, Reports no additional respiratory complaints, Denies chest congestion, Denies cough and Denies dyspnea Gastrointestinal: Gastrointestinal: Reports as per HPI, Reports no additional gastrointestinal complaints, Denies diarrhea, Denies nausea and Denies vomiting Genitourinary: Genitourinary: Reports no additional female genitourinary complaints Musculoskeletal: Musculoskeletal: Reports no additional musculoskeletal complaints Integumentary/Breasts: Skin/Breast: Reports system reviewed and no additional complaints, except as docu Neurologic: Reports system reviewed and no additional complaints, except as documented, Denies dizziness and Denies syncope Psychiatric: Psychiatric: Reports no additional psychiatric complaints Endocrine: Endocrine: Reports no additional endocrine complaints Hematologic/Lymphatic: Hematologic/Lymphatic: Reports no additional hematologic/lymphatic complaints Allergic/Immunologic: Allergic/Immunologic: Reports no additional allergic/immunologic complaints PMFSH Past Medical History Medical History Afib Heart attack High blood pressure High cholesterol Osteoporosis Pneumonia Surgical History Surgical History History of thyroid surgery Family History Family History Father Hypertension Bladder cancer Social History Social History Smoking status: Never smoker Alcohol intake: never Substance use: never Exam Const: General: healthy appearing, no acute distress and alert Nutritional Appearance: well nourished Orientation/consciousness: patient oriented x3 Limitations: no limitations HENMT: Head: normal to inspection Ears: external ears normal Face/Nose/Sinus: Normal external nose present Face and sinus: normal facial exam Mouth: Yes Normal oral and palatal mucosa present Eyes: Pupils: Equal, round and reactive pupils present EOM
--- NOTE | 2024-05-25 00:01 | ECG_ITS ---
Test Date: 2024-05-25 01:16:13 Measurements Intervals [place] Rate: 71 P: 15 HI: 188 QRS: -49 QRSD: 140 T: 93 QT: 408 QTc: 445 Interpretive Statements SINUS RHYTHM LEFT BUNDLE BRANCH BLOCK Compared to ECG 05/15/2024 04:20:56 SINUS RHYTHM NOW PRESENT Electronically Signed On 05-25-2024 11:43:11 CDT by Andrei Morris M.D.
--- NOTE | 2024-05-25 00:10 | PC.NURSE ---
heart rate 80's AFIB. will hold Metoprolol at this time.
--- NOTE | 2024-05-25 00:13 | PC.NURSE ---
patient reports that her heart rate is no longer racing. daughter is now at the bedside. heart rate 88 afib at this time. call light in reach
[2024-05-25 00:34] LABS: Basophils Absolute Auto 0.03 K/mm3 (0.00-0.10); Basophils Percent Auto 0.3 % (0.0-1.0); Eosinophils Absolute Auto 0.16 K/mm3 (0.02-0.50); Eosinophils Percent Auto 1.7 % (1.0-6.0); Hematocrit 41.5 % (35.0-42.0); Immature Granulocyte Absolute 0.13 K/mm3 (0.00-0.00); Immature Granulocyte Percent A 1.3 % (0.0-0.0); Lymphocytes Absolute Auto 2.52 K/mm3 (1.10-4.50); Mean Corpuscular HGB Conc 33.7 g/dL (32-36); Mean Corpuscular Hemoglobin 29.5 pg (27.0-31.0); Mean Corpuscular Volume 87.4 fL (78.0-102.0); Mean Platelet Volume 10.7 fl (9.2-11.8); Monocytes Absolute Auto 0.91 K/mm3 (0.10-0.90); Monocytes Percent Auto 9.4 % (2.0-11.0); Neutrophils Absolute Auto 5.94 K/mm3 (1.70-7.20); Neutrophils Percent Auto 61.3 % (50.0-70.0); Platelet Count Result 220 K/mm3 (150-420); Red Blood Count 4.75 M/mm3 (4.20-5.40); Red Cell Distribution Width 12.8 % (11.6-14.4); White Blood Count 9.7 K/mm3 (4.8-10.8)
[2024-05-25 00:44] LABS: INR 1.1; Prothrombin Time 11.6 Seconds (9.50-12.1)
[2024-05-25 00:45] LABS: Alanine Aminotransferase 19 U/L (14-59); Albumin Level 3.4 g/dL (3.4-5.0); Alkaline Phosphatase 38 U/L (46-116); Anion Gap 8 mmol/L (4-12); Aspartate Amino Transferase 17 U/L (15-37); Bilirubin,Total 0.5 mg/dL (0.00-1.00); Blood Urea Nitrogen 23 mg/dL (7-18); Calcium 8.8 mg/dL (8.5-10.1); Carbon Dioxide 27 mmol/L (21-32); Chloride 101 mmol/L (98-108); Estimated Glomerular Filt Rate 58; Glucose 94 mg/dL (70-99); Magnesium 2.1 mg/dL (1.8-2.4); Osmolality Calculated 285 mOsm/kg (285-295); Sodium 136 mmol/L (136-145); Total Protein 6.8 g/dL (6.4-8.2); Troponin I 14.5 ng/L (0.00-60.4)
--- NOTE | 2024-05-25 00:45 | PC.NURSE ---
patients daughter reports that patient was to have medications done but they didn't add any new med's or change the ones that she is on. She (patient) doesn't have an appointment with Dr Meyer until June 07 . per daughter and patient, patient is a full code.
[2024-05-25 00:48] LABS: D Dimer 0.38 mg/L (0.19-0.50)
--- NOTE | 2024-05-25 01:09 | ECG_ITS ---
Test Date: 2024-05-25 00:04:22 Measurements Intervals [place] Rate: 154 P: 0 AL: 0 QRS: -52 QRSD: 130 T: 124 QT: 298 QTc: 478 Interpretive Statements ATRIAL FIBRILLATION WITH RAPID VENTRICULAR RESPONSE LEFT AXIS DEVIATION [QRS AXIS < -30] LEFT BUNDLE BRANCH BLOCK [120+ ms QRS DURATION, 80+ ms Q/S IN V1/V2, 85+ ms R IN I/aVL/V5/V6] Compared to ECG 05/15/2024 04:20:56 Sinus tachycardia no longer present Electronically Signed On 05-25-2024 11:42:45 CDT by Andrei PARRY
--- NOTE | 2024-05-25 01:19 | PC.NURSE ---
plan is to discharge home after ekg completed per dr bardales
== END 2024-05-25 01:26 | disposition home or self-care (01) ==
PROVIDERS: Emergency Provider Emergency Medicine; PCP Internal Medicine
DX: I48.20 Chronic atrial fibrillation, unspecified (principal); I25.2 Old myocardial infarction; Z79.01 Long term (current) use of anticoagulants; Z79.82 Long term (current) use of aspirin
CPT/HCPCS: 36415; 71045; 80053; 83735; 84484; 85025; 85380; 85610; 93005; 99284

== ENCOUNTER 2024-06-03 17:24 | Emergency (ER) | payer MEDICARE, SELFPAY ==
[2024-06-03] VITALS (36 sets, daily range): BP systolic 94–127; BP diastolic 40–74; PULSE 52–90; RESP 9–19; TEMP 36.2; O2SAT 96
--- NOTE | ~2024-06-03 | XR_ITS ---
XR chest 1V portable Ordering provider: Jean-Paul Victor MD History: 89 years Female with . Onset today, heart palpitations . Comparison: May 25, 2024 FINDINGS: MEDIASTINUM: The cardiac silhouette is not enlarged. LUNGS: No effusion or pneumothorax. Opacification in the left lung base suggestive of atelectasis ana rodriguez pneumonia. Underlying fibrotic changes. OTHER: No free air under the diaphragm. Degenerative changes of the spine. IMPRESSION: Left basilar atelectasis. Lung fibrotic changes. Reviewed, dictated and finalized at location A.
--- NOTE | 2024-06-03 17:27 | ED.ARRPALP ---
HPI - Arrhythmia/Palpitations General Chief Complaint: Arrhythmia/Palpitations Stated Complaint: irregular heart beat Time Seen by Provider: 06/03/24 17:27 Source: patient and family Mode of arrival: ambulatory Limitations: no limitations History of Present Illness HPI narrative: patient is an 89-year-old female with coronary artery disease needing 3 stents and aortic stenosis repair. She is here with palpitations and arrhythmia sensation. No chest pain or shortness of breath. MD complaint: rapid heart beat, heart racing , skipped beats and palpitations Onset (ago): day(s) (1) Duration: intermittent Severity: moderate Context: occurred during rest Associated symptoms: denies other symptoms Treatments prior to arrival: beta-cortney and other ( Patient is on Eliquis for history of atrial fibrillation) Related Data Home Medications Medication Instructions Recorded Confirmed apixaban 5 mg tablet (Eliquis) 5 mg PO BID 05/14/20 06/03/24 aspirin 81 mg tablet,delayed 81 mg PO DAILY 05/14/20 06/03/24 release (Marsha Low Dose Aspirin) losartan 25 mg tablet 25 mg PO DAILY 05/14/20 06/03/24 metoprolol succinate 25 mg 25 mg PO DAILY 05/14/20 06/03/24 tablet,extended release 24 hr prednisone 5 mg tablet 10 mg PO DAILY 01/25/23 06/03/24 cholecalciferol (vitamin D3) 125 125 mcg PO DAILY 05/15/24 06/03/24 mcg (5,000 unit) tablet (Vitamin D3) Allergies Allergy/AdvReac Type Severity Reaction Status Date / Time No Known Allergies Allergy Verified 03/22/24 10:24 Review of Systems Review of Systems: All systems reviewed & are unremarkable except as noted in HPI and below Constitutional: Constitutional: Reports no additional constitutional complaints Eyes: Eyes: Reports no additional eye complaints ENT: Reports system reviewed and no additional complaints, except as documented Cardiovascular: Cardiovascular: Reports no additional cardiovascular complaints Respiratory: Respiratory: Reports no additional respiratory complaints Gastrointestinal: Gastrointestinal: Reports no additional gastrointestinal complaints Genitourinary: Genitourinary: Reports no additional female genitourinary complaints Musculoskeletal: Musculoskeletal: Reports no additional musculoskeletal complaints Integumentary/Breasts: Skin/Breast: Reports system reviewed and no additional complaints, except as docu Neurologic: Reports system reviewed and no additional complaints, except as documented Psychiatric: Psychiatric: Reports no additional psychiatric complaints Endocrine: Endocrine: Reports no additional endocrine complaints Hematologic/Lymphatic: Hematologic/Lymphatic: Reports no additional hematologic/lymphatic complaints Allergic/Immunologic: Allergic/Immunologic: Reports no additional allergic/immunologic complaints PMFSH Past Medical History Medical History Afib Heart attack High blood pressure High cholesterol Osteoporosis Pneumonia Surgical History Surgical History History of thyroid surgery Family History Family History Father Hypertension Bladder cancer Social History Social History Smoking status: Never smoker Alcohol intake: never Substance use: never Exam Const: General: healthy appearing Nutritional Appearance: well nourished Orientation/consciousness: patient oriented x3 HENMT: Head: normal to inspection Ears: external ears normal Face/Nose/Sinus: Normal external nose present Eyes: Conjunctivae: conjunctivae normal Pupils: Equal, round and reactive pupils present EOM: EOMs intact bilaterally Neck: Neck: normal visual inspection Chest: Chest palpation & inspection: normal inspection of the chest Resp: Effort & Inspection: normal respiratory effort and not labored Ausc
--- NOTE | 2024-06-03 17:34 | ECG_ITS ---
Test Date: 2024-06-03 17:46:31 Measurements Intervals [place] Rate: 75 P: 19 SD: 198 QRS: -50 QRSD: 137 T: 111 QT: 387 QTc: 433 Interpretive Statements SINUS RHYTHM LEFT BUNDLE BRANCH BLOCK BASELINE ARTIFACT- I, II, III, AVR, AVL ABNORMAL ECG Compared to ECG 05/25/2024 01:16:13 NO SIGNIFICANT CHANGE Electronically Signed On 06-03-2024 20:54:01 CDT by Leobardo Schroeder D.O.
[2024-06-03 18:02] LABS: Partial Thromboplastin Time 28.1 Sec (23.9-30.70); Prothrombin Time 11.1 Seconds (9.50-12.1)
[2024-06-03 18:10] LABS: Alanine Aminotransferase 12 U/L (14-59); Albumin Level 3.2 g/dL (3.4-5.0); Alkaline Phosphatase 42 U/L (46-116); Anion Gap 10 mmol/L (4-12); Aspartate Amino Transferase 19 U/L (15-37); Bilirubin,Total 0.3 mg/dL (0.00-1.00); Blood Urea Nitrogen 16 mg/dL (7-18); Calcium 8.7 mg/dL (8.5-10.1); Carbon Dioxide 26 mmol/L (21-32); Chloride 103 mmol/L (98-108); Estimated Glomerular Filt Rate > 60; Glucose 181 mg/dL (70-99); NT Pro B Type Natriuretic Pept 713 pg/mL (0-450); Osmolality Calculated 294 mOsm/kg (285-295); Potassium 3.6 mmol/L (3.5-5.1); Sodium 139 mmol/L (136-145); Total Protein 6.6 g/dL (6.4-8.2)
[2024-06-03 18:13] LABS: Basophils Absolute Auto 0.04 K/mm3 (0.00-0.10); Basophils Percent Auto 0.4 % (0.0-1.0); Eosinophils Absolute Auto 0.15 K/mm3 (0.02-0.50); Eosinophils Percent Auto 1.5 % (1.0-6.0); Hematocrit 41.8 % (35.0-42.0); Hemoglobin 14.2 g/dL (11.7-13.8); Immature Granulocyte Absolute 0.04 K/mm3 (0.00-0.00); Immature Granulocyte Percent A 0.4 % (0.0-0.0); Lymphocytes Absolute Auto 1.96 K/mm3 (1.10-4.50); Lymphocytes Percent Auto 19.5 % (18.0-42.0); Mean Corpuscular Hemoglobin 29.6 pg (27.0-31.0); Mean Corpuscular Volume 87.3 fL (78.0-102.0); Mean Platelet Volume 11.5 fl (9.2-11.8); Monocytes Absolute Auto 0.86 K/mm3 (0.10-0.90); Monocytes Percent Auto 8.6 % (2.0-11.0); Neutrophils Absolute Auto 6.98 K/mm3 (1.70-7.20); Neutrophils Percent Auto 69.6 % (50.0-70.0); Platelet Count Result 211 K/mm3 (150-420); Red Blood Count 4.79 M/mm3 (4.20-5.40)
[2024-06-03 18:19] LABS: Thyroid Stimulating Hormone 4.96 uIU/mL (0.36-3.74); Troponin I 14.5 ng/L (0.00-60.4)
--- NOTE | 2024-06-03 19:07 | PC.NURSE ---
REPORT TO WOODY ESCALANTE
== END 2024-06-03 21:30 | disposition home or self-care (01) ==
PROVIDERS: Emergency Provider Emergency Medicine; PCP Internal Medicine
DX: R00.2 Palpitations (principal); I25.10 Atherosclerotic heart disease of native coronary artery without angina pectoris; Z79.01 Long term (current) use of anticoagulants; Z79.82 Long term (current) use of aspirin; Z79.899 Other long term (current) drug therapy; I48.91 Unspecified atrial fibrillation; I25.2 Old myocardial infarction
CPT/HCPCS: 36415; 71045; 80053; 83735; 83880; 84443; 84484; 85025; 85610; 85730; 93005; 99284